=== PATIENT | female | born 1990 | race Caucasian/White ===

== ENCOUNTER 2023-12-27 12:37 | Emergency (ER) | payer OTHER ==
[~2023-12-27] VITALS: Ht 180.3 cm; Wt 72.6 kg
[2023-12-27 13:39] LABS: BASOPHILS 0.3 % (0-2); EOSINOPHILS 1.6 % (0-6); HEMATOCRIT 37.4 % (35.0-50.0); HEMOGLOBIN 12.8 g/dL (12.0-18.0); LYMPHOCYTES 16.9 % (24-44); MCH 29.9 (27-36); MCHC 34.1 g/dl (30-36); MCV 87.6 fl (81-99); MONOCYTES 4.6 % (0-12); NEUTROPHILS 76.6 % (39-80); PLATELET COUNT 221 K/uL (140-440); RBC 4.27 M/ul (4.3-5.7); RDW 12.8 (10.5-15.0)
[2023-12-27 13:54] LABS: ALBUMIN 3.2 g/dL (3.4-5.0); ALBUMIN/GLOBULIN RATIO 0.86 (1.1-2.4); ANION GAP 14.6 (7-21); BILIRUBIN, TOTAL 0.4 ng/dL (0.2-1.0); BUN/CREATININE RATIO 11.76 (6.0-28.6); CALCIUM 8.8 mg/dL (8.5-10.1); CREATININE, SERUM 0.68 mg/dL (0.55-1.02); POTASSIUM 3.6 mmol/L (3.5-5.1); PROTEIN, TOTAL 6.9 g/dL (6.4-8.2)
[2023-12-27] MEDS ORDERED: PRENATAL TABLE1 EACH PO (14:02)
[2023-12-27 14:49] VITALS: BP 119/72
--- NOTE | 2023-12-27 22:12 | EKG ---
[facility] [address] [facility] [place] [address] Signed Normal sinus rhythm with sinus arrhythmia Normal ECG No previous ECGs available Confirmed by Neelam Cheung MD () on 12/27/2023 10:12:20 PM Electronically Signed By: NEELAM CHEUNG MD 12/27/232211 PATIENT NAME: JOHN BARLOW Electrocardiogram DATE OF : [birth year] PHYSICIAN: NEELAM CHEUNG MD REPORT #: [id number] REPORT IS CONFIDENTIAL AND NOT TO BE RELEASED WITHOUT AUTHORIZATION
== END 2023-12-27 14:48 | disposition home or self-care (01) ==
LOC: ED 12:37
PROVIDERS: Emergency Medicine
DX: O99.891 Other specified diseases and conditions complicating pregnancy (principal); R22.41 Localized swelling, mass and lump, right lower limb; Z3A.28 28 weeks gestation of pregnancy
CPT/HCPCS: 36415; 80053; 85025; 93005; 93010; 93971; 99284-25